=== PATIENT | male | born 1990 | race Caucasian/White ===

== ENCOUNTER 2019-02-23 13:21 | Emergency (ER) | payer OTHER ==
[~2019-02-23] VITALS: Ht 177.8 cm; Wt 84.1 kg
[2019-02-23 13:23] VITALS: BP 146/89
--- NOTE | 2019-02-23 13:33 | NUR ---
WAS TRAINING. MOVED GLASS AND GOT LAC TO HIS R CALF. HAPPENED 20 MIN AGO. DENIES HX DIABETES. PT RESTING ON CHELSY. OLU.
[2019-02-23] MEDS ORDERED: LIDOCAINE-MPF 1%, 5ML ONE (13:49)
[2019-02-23] MEDS ORDERED: DIPH,PERTUSS(ACELL),TET VAC/PF 0.5 ML IM-VACC ONE ×2 (13:50→14:00)
--- NOTE | 2019-02-23 13:56 | NUR ---
PT TAKEN TO XR IN STABLE CONDITION.
[2019-02-23] MEDS ORDERED: LIDOCAINE 1%-EPI 1:100K, 20ML SQ ONE (14:00)
[2019-02-23] MEDS ORDERED: BACITRACIN ZINC OINT 500U/GM, 0.9 GM ONE (14:14)
== END 2019-02-23 15:14 | disposition home or self-care (01) ==
LOC: ED 14:51
DX: S81.811A Laceration without foreign body, right lower leg, initial encounter (principal); W45.8XXA Other foreign body or object entering through skin, initial encounter; Y93.89 Activity, other specified; Y92.69 Other specified industrial and construction area as the place of occurrence of the external cause; Y99.0 Civilian activity done for income or pay
CPT/HCPCS: 12031; 90471; 90715; 99284